=== PATIENT | female | born 1995 | race Caucasian/White ===

== ENCOUNTER 2018-06-10 12:51 | Emergency (ER) | payer OTHER ==
[2018-06-10] MEDS ORDERED: PROCHLORPERAZINE EDISYLATE INJ 10 MG/2 ML VIAL IV ONE (13:14)
[2018-06-10] MEDS ORDERED: NORMAL SALINE 1000 ML 1,000 ML IV ONE (13:14)
[2018-06-10] MEDS ORDERED: DIPHENHYDRAMINE HCL 50 MG/ML VIAL IV ONE (13:14)
[2018-06-10] MEDS ORDERED: KETOROLAC TROMETHAMINE INJ/PF 30 MG/1 ML SDV IV ONE (13:14)
--- NOTE | 2018-06-10 13:16 | ER Document Report ---
HPI - HPI Patient complains to provider of: Headache Time Seen by Provider: 06/10/18 13:09 Onset: This morning Onset/Duration: Gradual Quality of pain: Throbbing Pain Level: 4 Context: Patient presents complaining of left-sided headache pain that started around 830 this morning. Patient states that pain gradually worsened throughout the day. Patient does report light and noise sensitivity. Patient denies any fever or head injury. Patient does complain of some nausea. Patient states she typically gets about 1-2 headaches a week. Patient denies any family history of aneurysm. Associated Symptoms: Headache, Nausea. denies: Productive cough, Fever, Vomiting Exacerbated by: Other - Light and noise Relieved by: Denies Similar symptoms previously: Yes Recently seen / treated by doctor: No - ROS ROS below otherwise negative: Yes Systems Reviewed and Negative: Yes All other systems reviewed and negative - CONSTITUTIONAL Constitutional: DENIES: Fever, Chills - EENT EENT: DENIES: Sore Throat - NEURO Neurology: REPORTS: Headache. DENIES: Weakness, Vision blurred, Dizzinesss / Vertigo - GASTROINTESTINAL Gastrointestinal: REPORTS: Nausea. DENIES: Abdominal Pain, Patient vomiting - MUSCULOSKELETAL Musculoskeletal: DENIES: Back Pain, Neck Pain - DERM Skin Color: Normal Skin Problems: None Past Medical History - General Information source: Patient - Social History Smoking Status: Never Smoker Frequency of alcohol use: Occasional Drug Abuse: None Occupation: Patient access Family History: Reviewed & Not Pertinent - Medical History Medical History: Negative Past Surgical History: Reports: Hx Orthopedic Surgery Vertical Provider Document - CONSTITUTIONAL Agree With Documented VS: Yes Exam Limitations: No Limitations General Appearance: WD/WN, No Apparent Distress - INFECTION CONTROL TRAVEL OUTSIDE OF THE [place] IN LAST 30 DAYS: No - HEENT HEENT: Atraumatic, Normal ENT Exam, Normocephalic - NECK Neck: Normal Inspection, Supple. negative: Lymphadenopathy-Left, Lymphadenopathy-Right Notes: No meningismus - RESPIRATORY Respiratory: Breath Sounds Normal, No Respiratory Distress - CARDIOVASCULAR Cardiovascular: Regular Rate, Regular Rhythm - GI/ABDOMEN Gastrointestinal: Abdomen Soft - BACK Back: Normal Inspection Notes: No spinal tenderness - MUSCULOSKELETAL/EXTREMETIES Musculoskeletal/Extremeties: ULICES BOJORQUEZ - NEURO Level of Consciousness: Awake, Appropriate Motor/Sensory: No Motor Deficit Notes: No focal neurologic deficit - DERM Integumentary: Warm, Dry, No Rash Course - Re-evaluation Re-evalutation: 06/10/18 14:31 Patient reports headache pain is resolved at this time. Patient is feeling much better and ready to be discharged. The patient presents with headache without signs of VINYL CUTTER bleed, stroke, infection, or other serious etiology. The patient is neurologically intact. Given the extremely low risk of these diagnoses further testing and evaluation for these possibilities does not appear to be indicated at this time. The patient has been instructed to return if the symptoms worsen or change in any way. Discharge - Discharge Clinical Impression: Headache Qualifiers: Headache type: unspecified Headache chronicity pattern: unspecified pattern Intractability: not intractable Qualified Code(s): R51 - Headache Condition: Stable Disposition: HOME, SELF-CARE Instructions: Intravenous Compazine for Headaches ([facility]), Headache ([facility]), Toradol Injection ([facility]) Additional Instructions: Return immediately for any new or worsening symptoms Followup with your primary care provider, call tomorrow to make a followup appointment Prescriptions: Butalb/Acetaminophen/Caffeine [Fioricet (50-325-40 mg) Tablet] 1 - 2 tab PO Q4H #20 each Forms: Return to Work Referrals: DAVONTE LUCIANO MD [NO LOCAL MD] - Follow up as needed
[2018-06-10 19:53] VITALS: BP 125/87
== END 2018-06-10 14:40 | disposition home or self-care (01) ==
LOC: ER 12:51
DX: R51 Headache (principal); R11.0 Nausea
CPT/HCPCS: 99283; 96361; 96374; 96375; J1200; J1885; J0780; J7030

== ENCOUNTER 2018-09-02 11:39 | Emergency (ER) | payer OTHER ==
[2018-09-02 11:50] VITALS: BP 120/81
--- NOTE | 2018-09-02 12:03 | ER Document Report ---
HPI - HPI Time Seen by Provider: 09/02/18 11:53 Pain Level: 1 Context: Patient is a 23-year-old female who presents emergency department with a chief complaint of right ear pain and a sore throat. Her symptoms started yesterday. 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 She also has a nickel allergy and uses triamcinolone when she develops a rash. She is out of her triamcinolone cream a nd would like a refill. - EENT EENT: REPORTS: Sore Throat, Ear Pain - NEURO Neurology: DENIES: Headache - CARDIOVASCULAR Cardiovascular: DENIES: Chest pain - RESPIRATORY Respiratory: REPORTS: Coughing. DENIES: Trouble Breathing - REPRODUCTIVE Reproductive: DENIES: : - MUSCULOSKELETAL Musculoskeletal: DENIES: Extremity pain - DERM Skin Color: Normal Skin Problems: None Past Medical History - Social History Smoking Status: Never Smoker Family History: Reviewed & Not Pertinent Patient has suicidal ideation: No Patient has homicidal ideation: No Renal/ Medical History: Denies: Hx Peritoneal Dialysis Past Surgical History: Reports: Hx Orthopedic Surgery - left knee Vertical Provider Document - CONSTITUTIONAL Agree With Documented VS: Yes Exam Limitations: No Limitations - INFECTION CONTROL TRAVEL OUTSIDE OF THE [place] IN LAST 30 DAYS: No - HEENT HEENT: Atraumatic, Normocephalic, PERRLA, Pharyngeal Tenderness, Pharyngeal Eryt ryanne, Tympanic Membrane Red, Tympanic Membrane Bulging - Purulent drainage noted to right tympanic membrane. negative: Pharyngeal Exudate - NECK Neck: Normal Inspection - RESPIRATORY Respiratory: Breath Sounds Normal, No Respiratory Distress - CARDIOVASCULAR Cardiovascular: Regular Rate, Regular Rhythm Pulses: Normal: Radial - GI/ABDOMEN Gastrointestinal: Abdomen Soft - MUSCULOSKELETAL/EXTREMETIES Musculoskeletal/Extremeties: FROM - NEURO Level of Consciousness: Awake, Alert, Appropriate - DERM Integumentary: Warm, Dry Course - Re-evaluation Re-evalutation: 09/02/18 12:04 Patient's physical exam is consistent with acute otitis media. She will be given amoxicillin. She states that she is not allergic to plain amoxicillin, but is allergic to Augmentin, which she is most likely allergic to the clavulanic acid in the Augmentin. I do not suspect Moe's angina, peritonsillar abscess, spontaneous ruptured hepatic membrane, or any life- threatening etiology at this time. Verbal discharge instructions were given to the patient. They verbalized understanding. They are stable for discharge. - Vital Signs Vital signs: Temp Pulse Resp BP Pulse Ox 99.0 F 83 18 120/81 98 09/02/18 11:49 09/02/18 11:49 09/02/18 11:49 09/02/18 11:49 09/02/18 11:49 Discharge - Discharge Clinical Impression: Nickel allergy Acute otitis media Qualifiers: Otitis media type: mucoid Laterality: right Qualified Code(s): H65.111 - Acute and subacute allergic otitis media (mucoid) (sanguinous) (serous), right ear Condition: Stable Additional Instructions: You were seen today in the emergency department for right ear pain. You have an infection in your right ear. You have been given amoxicillin, an antibiotic to help clear the ear infection. Please take the medication as prescribed. Please take all your medication until it is gone. You also received a refill on your triamcinolone cream. Follow up with your primary care in regards to this visit. You can take ibuprofen 600 mg and acetaminophen 1000 mg every 6 hours as needed for a fever. If you develop a fever greater than 100.4 F, have difficulty breathing, shortness of breath, or worsening symptoms, please return to the emergency department. Prescriptions: Amoxicillin Trihydrate [Amoxil 875 mg Tablet] 1 tab PO Q8 #56 tablet Triamcinolone Acetonide [Aristocort 0.5% Cream 15 gm] 1 applic TP PRN PRN #1 tube PRN Reason:
== END 2018-09-02 12:20 | disposition home or self-care (01) ==
LOC: ER 11:39
DX: H65.111 Acute and subacute allergic otitis media (mucoid) (sanguinous) (serous), right ear (principal); L23.0 Allergic contact dermatitis due to metals; H92.01 Otalgia, right ear; J02.9 Acute pharyngitis, unspecified; R21 Rash and other nonspecific skin eruption
CPT/HCPCS: 99282

== ENCOUNTER 2018-09-05 08:12 | Emergency (ER) | payer OTHER ==
[2018-09-05 08:17] VITALS: BP 112/73
--- NOTE | 2018-09-05 09:03 | ER Document Report ---
HPI - HPI Time Seen by Provider: 09/05/18 08:24 Pain Level: 1 Notes: Patient is a 23-year-old female with no significant past medical history who presents to the emergency department complaining of nasal congestion/discharge, s/t, dry nonproductive cough, fever, body ache 2-3 days. Patient states that she is still eating and drinking without difficulties. She is still urinating normally having normal bowel movements. Patient has been using some [id number] meds for symptoms. She was placed on Amoxicillin 3 days ago for rt ear infection. She denies any significant past medical history including cardiopulmonary history and immunocompromised conditions. Patient denies any smoking or IV drug use. Denies any current headache, neck pain, chest pain, palpitations, syncope, shortness of breath, wheeze, dyspnea, abdominal pain, nausea/vomiting/diarrhea, urinary retention, dysuria, hematuria, or rash. - ROS Systems Reviewed and Negative: Yes All other systems reviewed and negative - EENT EENT: REPORTS: Sore Throat - RESPIRATORY Respiratory: REPORTS: Coughing - REPRODUCTIVE Reproductive: DENIES: : Past Medical History - Social History Smoking Status: Never Smoker Chew tobacco use (# tins/day): No Frequency of alcohol use: Occasional Drug Abuse: None Family History: Reviewed & Not Pertinent Patient has suicidal ideation: No Patient has homicidal ideation: No Renal/ Medical History: Denies: Hx Peritoneal Dialysis Past Surgical History: Reports: Hx Orthopedic Surgery - left knee Vertical Provider Document - CONSTITUTIONAL Agree With Documented VS: Yes Notes: PHYSICAL EXAMINATION: GENERAL: Well-appearing, well-nourished and in no acute distress. A&Ox4. Answers questions appropriately. Moves comfortably w/o notable distress HEAD: Atraumatic, normocephalic. EYES: Pupils equal round and reactive to light, extraocular movements intact, sclera anicteric, conjunctiva are normal. ENT: EAC clear b/l. Rt TM has fluid. Lt TM wnl. Nares patent and with clear discharge. oropharynx mild erythema without exudates. No tonsilar hypertrophy with mild erythema no exudate. No palatine shift. Uvula midline. No tongue protrusion. No drooling, hoarseness, or airway compromise. Moist mucous membranes. No sinus tenderness. NECK: Normal range of motion, supple without lymphadenopathy. No rigidity/meningismus. LUNGS: Breath sounds clear to auscultation bilaterally and equal. No wheezes rales or rhonchi. No retractions HEART: Regular rate and rhythm without murmurs, rubs, gallops. NEUROLOGICAL: Normal speech, normal gait. PSYCH: Normal mood, normal affect. SKIN: Warm, Dry, normal turgor, no rashes or lesions noted. - INFECTION CONTROL TRAVEL OUTSIDE OF THE [place] IN LAST 30 DAYS: No Course - Re-evaluation Re-evalutation: 09/05/18 09:01 Patient is an afebrile, well-hydrated, 23-year-old female who presents to the ED with acute URI, suspect influenza. Vitals are acceptable. PE is otherwise unremarkable. No labs or imaging warranted at this time based on H&P. Pt clinically looks like the flu and she is already on Amoxicillin x3 days so no strep to be ordered. Patient has no significant cardiopulmonary or immunocompromised medical conditions. Patient's lungs are clear to auscultation bilaterally without tachycardia, hypoxia, or tachypnea. Patient is tolerating p.o. without any difficulties. Pt beyond treatment window with tamiflu. Low suspicion for any meningitis, sepsis, peritonsillar/pharyngeal abscess, respiratory compromise, severe dehydration, or other emergent systemic condition at this time. Patient is aware this condition can change from initial presentation and she needs to monitor symptoms closely. Conservative measures otherwise for symptoms. Recheck with your PCM in 3-5 days. Return to the ED with any worsening/concerning symptoms otherwise as reviewed in discharge. Patient is in agreement. - Vital Signs Vital signs: Temp Pulse Resp BP Pulse Ox 98.2 F 71 16 112/73 97 09/05/18 08:16 09/05/18 08:16 09/05/18 08:16 09/05/18 08:16 09/05/18 08:16 Discharge - Discharge Clinical Impression: Acute URI Condition: Stable Disposition: HOME, SELF-CARE Additional Instructions: Maintain adequate fluid intake Take meds as directed tylenol/ibuprofen as needed over the counter cold medication as needed for symptoms Humidified air may help Wash your hands regularly Wear a mask when coughing F/u: with your PCM in 3-5 days for a recheck Return to the ED with any fever, worsening pain, chest pain, palpitations, syncope, worsening TATUM, neck pain/stiffness, shortness of breath, wheezing, drooling, trouble swallowing/breathing, abdominal pain, n/v/d, rash, or worsening/concerning symptoms otherwise. Forms: Return to Work Referrals: [facility] [Provider Group] - Follow up as needed
== END 2018-09-05 09:09 | disposition home or self-care (01) ==
LOC: ER 08:12
DX: J06.9 Acute upper respiratory infection, unspecified (principal); M79.10 Myalgia, unspecified site
CPT/HCPCS: 99283

== ENCOUNTER 2018-12-20 19:25 | Emergency (ER) | payer OTHER ==
--- NOTE | 2018-12-20 19:39 | ER Document Report ---
ED Medical Screen (RME) - General Chief Complaint: Abdominal Cramping Stated Complaint: ABDOMINAL PAIN Time Seen by Provider: 12/20/18 19:37 TRAVEL OUTSIDE OF THE [place] IN LAST 30 DAYS: No - HPI Notes: 12/20/18 19:37 Patient is a 23-year-old female no significant past medical history who presents complaining of intermittent lower pelvic cramping that has been ongoing for the past week. Patient states that her cramping became a little more intense today which prompted her to come here for evaluation. She is on ovulation medications and her last mental cycle was about 3 weeks ago. Patient states that she does have associated nausea without vomiting. She is urinating normally and having normal bowel movements. No other vaginal discharge, odor, or bleeding. Patient does not want any medications at this time. Denies TATUM, fever, neck pain, URI, CP, SOB, dysuria, back pain, or rash. I have treated and performed a rapid initial assessment of this patient. A comprehensive ED assessment and evaluation of the patient, analysis of test results and completion of medical decision making process will be conducted by additional ED providers. PHYSICAL EXAMINATION: GENERAL: Well-appearing, well-nourished and in no acute distress. A&Ox4. Answers questions appropriately. LUNGS: Breath sounds clear to auscultation bilaterally and equal. No wheezes rales or rhonchi. HEART: Regular rate and rhythm without murmurs, rubs, gallops. ABDOMEN: Soft, nondistended abdomen. No guarding, no rebound. Normal bowel sounds present. No CVA tenderness bilaterally. Grossly nontender (cannot elicit thorough abd exam w/o bed, however). - Related Data Allergies/Adverse Reactions: amoxicillin [From Augmentin] Allergy (Verified 06/10/18 12:53) clavulanic acid [From Augmentin] Allergy (Verified 06/10/18 12:53) latex Allergy (Verified 06/10/18 12:53) Past Medical History - Social History Chew tobacco use (# tins/day): No Frequency of alcohol use: Occasional Drug Abuse: None Renal/ Medical History: Denies: Hx Peritoneal Dialysis Past Surgical History: Reports: Hx Orthopedic Surgery - left knee Physical Exam - Vital signs Vitals: Temp Pulse Resp BP Pulse Ox 98.0 F 110 H 18 134/82 H 98 12/20/18 19:31 12/20/18 19:31 12/20/18 19:31 12/20/18 19:31 12/20/18 19:31 Course - Vital Signs Vital signs: Temp Pulse Resp BP Pulse Ox 98.0 F 110 H 18 134/82 H 98 12/20/18 19:31 12/20/18 19:31 12/20/18 19:31 12/20/18 19:31 12/20/18 19:31
[2018-12-20 20:08] LABS: ABSOLUTE BASOPHILS # (AUTO) 0.1 10^3/uL (0.0-0.2); ABSOLUTE EOSINOPHILS # (AUTO) 0.2 10^3/uL (0.0-0.6); ABSOLUTE LYMPHOCYTES (AUTO) 2.6 10^3/uL (0.5-4.7); ABSOLUTE MONOCYTES (AUTO) 0.6 10^3/uL (0.1-1.4); ABSOLUTE NEUT (AUTO) 8.2 10^3/uL (1.7-8.2); BASOPHILS % (AUTO) 0.4 % (0-2); EOSINOPHILS % (AUTO) 1.5 % (0-6); HEMATOCRIT 40.8 % (36.0-47.0); HEMOGLOBIN 14.1 g/dL (12.0-15.5); LYMPHOCYTES % (AUTO) 22.2 % (13-45); MEAN CORPUSCULAR HEMOGLOBIN 27.8 pg (27.0-33.4); MEAN CORPUSCULAR HGB CONC 34.6 g/dL (32.0-36.0); MEAN CORPUSCULAR VOLUME 80 fl (80-97); MONOCYTES % (AUTO) 5.2 % (3-13); PLATELET COUNT 172 10^3/uL (150-450); RED BLOOD COUNT 5.08 10^6/uL (3.72-5.28); RED CELL DISTRIBUTION WIDTH 12.6 % (11.5-14.0); SEGMENTED NEUTROPHILS % (AUTO) 70.7 % (42-78); TOTAL CELLS COUNTED % (AUTO) 100 %; WHITE BLOOD COUNT 11.6 10^3/uL (4.0-10.5)
[2018-12-20 20:20] LABS: ALANINE AMINOTRANSFERASE 23 U/L (9-52); ALBUMIN 4.4 g/dL (3.5-5.0); ALKALINE PHOSPHATASE 48 U/L (38-126); ANION GAP 8 (5-19); ASPARTATE AMINO TRANSFERASE 20 U/L (14-36); BILIRUBIN,DIRECT 0.2 mg/dL (0.0-0.4); BILIRUBIN,TOTAL 0.4 mg/dL (0.2-1.3); BLOOD UREA NITROGEN 12 mg/dL (7-20); CALCIUM 9.5 mg/dL (8.4-10.2); CARBON DIOXIDE 30 mmol/L (22-30); CHLORIDE 102 mmol/L (98-107); GLUCOSE 115 mg/dL (75-110); POTASSIUM 3.9 mmol/L (3.6-5.0); SODIUM 139.5 mmol/L (137-145); TOTAL PROTEIN 7.2 g/dL (6.3-8.2)
[2018-12-20 21:03] LABS: APPEARANCE,URINE CLEAR; BILIRUBIN,URINE NEGATIVE (NEGATIVE); COLOR,URINE STRAW; GLUCOSE, URINE NEGATIVE (NEGATIVE); KETONES,URINE NEGATIVE (NEGATIVE); LEUKOCYTE ESTERASE,URINE NEGATIVE (NEGATIVE); NITRITE,URINE NEGATIVE (NEGATIVE); PROTEIN,URINE NEGATIVE (NEGATIVE); URINE SPECIFIC GRAVITY 1.008; UROBILINOGEN,URINE NEGATIVE mg/dL (<2.0)
--- NOTE | 2018-12-20 21:03 | RADIOLOGY REPORT (SQ) ---
US PELVIS HISTORY: Pelvic pain. COMPARISON: None. TECHNIQUE: Grayscale, color Doppler, and spectral Doppler ultrasound images of the pelvis were obtained. FINDINGS: The uterus is retroverted and measures 7.4 x 5.0 x 4.2 cm. The endometrium is 1.1 cm in thickness. The cervix is 1.8 cm in length. Both ovaries are normal in size and contain normal follicles, with the right ovary measuring 3.1 x 2.6 x 2.5 cm, and the left ovary measuring 3.1 x 2.1 x 1.5 cm. Normal color Doppler blood flow is seen in both ovaries. Trace pelvic free fluid. IMPRESSION: No acute pelvic findings.
--- NOTE | 2018-12-20 23:24 | ER Document Report ---
ED GI/ - General Chief Complaint: Abdominal Cramping Stated Complaint: ABDOMINAL PAIN Time Seen by Provider: 12/20/18 19:37 Notes: 23-year-old female patient emergency department chief complaint of some lower pelvic discomfort. Patient was concerned because on Clomid. Never felt this pain before. Denies any fever, chills, sweats. No vomiting. No vaginal discharge. Does not think that she is but definitely has some concerns. Pain is getting better not worse. TRAVEL OUTSIDE OF THE [place] IN LAST 30 DAYS: No - Related Data Allergies/Adverse Reactions: amoxicillin [From Augmentin] Allergy (Verified 06/10/18 12:53) clavulanic acid [From Augmentin] Allergy (Verified 06/10/18 12:53) latex Allergy (Verified 06/10/18 12:53) Past Medical History - Social History Smoking Status: Never Smoker Chew tobacco use (# tins/day): No Frequency of alcohol use: Occasional Drug Abuse: None Family History: Reviewed & Not Pertinent Patient has suicidal ideation: No Patient has homicidal ideation: No Renal/ Medical History: Denies: Hx Peritoneal Dialysis Past Surgical History: Reports: Hx Orthopedic Surgery - left knee Review of Systems - Review of Systems Notes: Constitutional: denies: Chills, Diaphoresis, Fever, Malaise, Weakness EENT: denies: Eye discharge, Blurred vision, Tearing, Double vision, Nose congestion, Nose discharge, Throat swelling, Mouth pain Cardiovascular: denies: Palpitations, Heart racing, Orthopnea, Dyspnea, Chest pain Respiratory: denies: Cough, Hurts to breathe, Wheezing, Shortness of breath Gastrointestinal: + Abdominal pain, -Diarrhea,+Nausea,- Vomiting, -Black stools, -bright red blood in stool Genitourinary: denies: -Burning, -Dysuria, -Discharge,- Frequency,- Flank pain, -Hematuria Musculoskeletal: denies: Joint pain, Joint swelling, Muscle pain, Muscle stiffness, back pain Hematologic/Lymphatic: denies: Anemia, Easy bleeding, Easy bruising, Blood clots Neurological/Psychological: denies: Confusion, Dementia, Depression, Loss of consciousness Skin: No lesions, no masses, no skin breakdown, no abscesses Physical Exam - Vital signs Vitals: Temp Pulse Resp BP Pulse Ox 98.0 F 110 H 18 134/82 H 98 12/20/18 19:31 12/20/18 19:31 12/20/18 19:31 12/20/18 19:31 12/20/18 19:31 Interpretation: Normal - General General appearance: Appears well, Alert - HEENT Head: Normocephalic, Atraumatic Eyes: Normal Pupils: PERRL - Respiratory Respiratory status: No respiratory distress Chest status: Nontender Breath sounds: Normal Chest palpation: Normal - Cardiovascular Rhythm: Regular Heart sounds: Normal auscultation Murmur: No - Abdominal Inspection: Normal Distension: No distension Bowel sounds: Normal Tenderness: Tender - Mild tenderness to palpation in the lower suprapubic area.. No: Guarding, Rebound Organomegaly: No organomegaly - Back Back: Normal, Nontender - Extremities General upper extremity: Normal inspection, Nontender, Normal color, Normal ROM, Normal temperature General lower extremity: Normal inspection, Nontender, Normal color, Normal ROM, Normal temperature, Normal weight bearing. No: Nelli's sign - Neurological Neuro grossly intact: Yes Cognition: Normal Orientation: AAOx4 Carlos Coma Scale Eye Opening: Spontaneous Carlos Coma Scale Verbal: Oriented Carlos Coma Scale Motor: Obeys Commands Carlos Coma Scale Total: 15 Speech: Normal Motor strength normal: LUE, RUE, LLE, RLE Sensory: Normal - Psychological Associated symptoms: Normal affect, Normal mood - Skin Skin Temperature: Warm Skin Moisture: Dry Skin Color: Normal Course - Re-evaluation Re-evalutation: 12/20/18 23:21 Laboratory 12/20/18 12/20/18 12/20/18 19:37 19:47 19:47 WBC 11.6 H RBC 5.08 Hgb 14.1 Hct 40.8 MCV 80 MCH 27.8 MCHC 34.6 RDW 12.6 Plt Count 172 Seg Neutrophils % 70.7 Lymphocytes % 22.2 Monocytes % 5.2 Eosinophils % 1.5 Basophils % 0.4 Absolute Neutrophils 8.2 Absolute Lymphocytes 2.6 Absolute Monocytes 0.6 Absolute Eosinophils 0.2 Absolute Basophils 0.1 Sodium 139.5 Potassium 3.9 Chloride 102 Carbon Dioxide 30 Anion Gap 8 BUN 12 Creatinine 0.85 Est GFR ( Amer) > 60 Est GFR (Non-Af Amer) > 60 Glucose 115 H Calcium 9.5 Total Bilirubin 0.4 Direct Bilirubin 0.2 Neonat Total Bilirubin Not Reportable Neonat Direct Bilirubin Not Reportable Neonat Indirect Bili Not Reportable AST 20 ALT 23 Alkaline Phosphatase 48 Total Protein 7.2 Albumin 4.4 Beta HCG, Quant < 2.39 Total Beta HCG NEGATIVE Urine Color STRAW Urine Appearance CLEAR Urine pH 7.0 Ur Specific [place] 1.008 Urine Protein NEGATIVE Urine Glucose (UA) NEGATIVE Urine Ketones NEGATIVE Urine Blood NEGATIVE Urine Nitrite NEGATIVE Urine Bilirubin NEGATIVE Urine Urobilinogen NEGATIVE Ur Leukocyte Esterase NEGATIVE Urine WBC (Auto) 0 Urine RBC (Auto) 0 Squamous Epi Cells Auto 4 Urine Mucus (Auto) RARE Urine Ascorbic Acid NEGATIVE Transvaginal US 12/20/18 19:37 IMPRESSION: No acute pelvic findings. There is no evidence of any ectopic . hCG negative. Urinalysis unrema rkable. Labs unremarkable with exception of a slight elevated WBC count. Ultrasound did not reveal anything significant. At this time I am given her instructions to return if symptoms are getting worse. As always this could be an early appendicitis. I have given her instructions with regards to right lower quadrant pain. Patient is an intelligent individual and I believe she can easily be discharged at this time with close outpatient follow-up. Return in 24 hours if symptoms are getting worse or no better. - Vital Signs Vital signs: Temp Pulse Resp BP Pulse Ox 98.0 F 110 H 18 134/82 H 98 12/20/18 19:31 12/20/18 19:31 12/20/18 19:31 12/20/18 19:31 12/20/18 19:31 - Laboratory Result Diagrams: 12/20/18 19:47 12/20/18 19:47 Laboratory results interpreted by me: 12/20/18 12/20/18 19:47 19:47 WBC 11.6 H Glucose 115 H Discharge - Discharge Clinical Impression: Abdominal pain Qualifiers: Abdominal location: generalized Qualified Code(s): R10.84 - Generalized abdominal pain Condition: Good Disposition: HOME, SELF-CARE Instructions: Abdominal Pain ([facility]), Observation for Appendicitis ([facility]) Additional Instructions: It is very important that if your symptoms are getting worse especially if you begin to develop fever, do not feel like eating and the pain in your abdomen begins to get worse in the right lower quadrant then you should return in 24 hours or sooner for repeat evaluation. This could always be an early appendicitis. Good outpatient follow-up or repeat evaluation in the ER is necessary if symptoms are not getting better or if getting worse. Forms: Return to Work
[2018-12-21] VITALS: BP 119/79
== END 2018-12-20 23:57 | disposition home or self-care (01) ==
LOC: ER 19:25
DX: R10.84 Generalized abdominal pain (principal); Z88.0 Allergy status to penicillin; Z91.040 Latex allergy status
CPT/HCPCS: 36415; 76830; 80053; 81001; 84702; 85025; 93976; 99284

== ENCOUNTER 2018-12-21 14:11 | Emergency (ER) | payer OTHER ==
[2018-12-21] MEDS ORDERED: NORMAL SALINE 1000 ML 1,000 ML IV ONE (16:21)
--- NOTE | 2018-12-21 16:23 | ER Document Report ---
ED Medical Screen (RME) - General Chief Complaint: Abdominal Pain Stated Complaint: ABDOMINAL PAIN Time Seen by Provider: 12/21/18 16:18 Mode of Arrival: Ambulatory Information source: Patient Notes: Patient presents with lower pelvic pain for the past week that has radiated to the right lower side of the abdomen to the right lateral side. Patient states pain worsened yesterday. Patient was seen here yesterday and was discharged with instructions to return for any worsening or persistent problems. Patient states they were concerned about appendicitis due to her elevated white blood ce ll count yesterday. I have greeted and performed a rapid initial assessment of this patient. A comprehensive ED assessment and evaluation of the patient, analysis of test results and completion of the medical decision making process will be conducted by additional ED providers. TRAVEL OUTSIDE OF THE [place] IN LAST 30 DAYS: No - Related Data Allergies/Adverse Reactions: amoxicillin [From Augmentin] Allergy (Verified 12/21/18 14:15) clavulanic acid [From Augmentin] Allergy (Verified 12/21/18 14:15) latex Allergy (Verified 12/21/18 14:15) Past Medical History - Social History Frequency of alcohol use: Occasional Drug Abuse: None Renal/ Medical History: Denies: Hx Peritoneal Dialysis Past Surgical History: Reports: Hx Orthopedic Surgery - left knee Physical Exam - Vital signs Vitals: Pulse Resp BP 105 H 16 125/77 12/21/18 14:20 12/21/18 14:20 12/21/18 14:20 - Abdominal Tenderness: Tender - Right lower quadrant, right lateral side Course - Vital Signs Vital signs: Temp Pulse Resp BP Pulse Ox 105 H 16 125/77 12/21/18 14:20 12/21/18 14:20 12/21/18 14:20
[2018-12-21 17:14] LABS: ABSOLUTE EOSINOPHILS # (AUTO) 0.1 10^3/uL (0.0-0.6); ABSOLUTE LYMPHOCYTES (AUTO) 1.9 10^3/uL (0.5-4.7); ABSOLUTE MONOCYTES (AUTO) 0.4 10^3/uL (0.1-1.4); ABSOLUTE NEUT (AUTO) 7.1 10^3/uL (1.7-8.2); BASOPHILS % (AUTO) 0.5 % (0-2); EOSINOPHILS % (AUTO) 0.8 % (0-6); HEMATOCRIT 44.5 % (36.0-47.0); HEMOGLOBIN 15.5 g/dL (12.0-15.5); LYMPHOCYTES % (AUTO) 19.9 % (13-45); MEAN CORPUSCULAR HEMOGLOBIN 28.1 pg (27.0-33.4); MEAN CORPUSCULAR HGB CONC 34.7 g/dL (32.0-36.0); MEAN CORPUSCULAR VOLUME 81 fl (80-97); MONOCYTES % (AUTO) 3.8 % (3-13); PLATELET COUNT 175 10^3/uL (150-450); RED BLOOD COUNT 5.49 10^6/uL (3.72-5.28); RED CELL DISTRIBUTION WIDTH 12.7 % (11.5-14.0); TOTAL CELLS COUNTED % (AUTO) 100 %; WHITE BLOOD COUNT 9.5 10^3/uL (4.0-10.5)
[2018-12-21 17:29] LABS: ALANINE AMINOTRANSFERASE 28 U/L (9-52); ALBUMIN 4.9 g/dL (3.5-5.0); ALKALINE PHOSPHATASE 54 U/L (38-126); ANION GAP 9 (5-19); ASPARTATE AMINO TRANSFERASE 24 U/L (14-36); BILIRUBIN,DIRECT 0.2 mg/dL (0.0-0.4); BILIRUBIN,TOTAL 0.8 mg/dL (0.2-1.3); BLOOD UREA NITROGEN 11 mg/dL (7-20); CALCIUM 10.1 mg/dL (8.4-10.2); CARBON DIOXIDE 30 mmol/L (22-30); CHLORIDE 101 mmol/L (98-107); GLUCOSE 88 mg/dL (75-110); POTASSIUM 3.9 mmol/L (3.6-5.0); SODIUM 140.1 mmol/L (137-145); TOTAL PROTEIN 8.2 g/dL (6.3-8.2)
[2018-12-21 17:32] LABS: APPEARANCE,URINE SLIGHTLY-CLOUDY; BILIRUBIN,URINE NEGATIVE (NEGATIVE); COLOR,URINE YELLOW; GLUCOSE, URINE NEGATIVE (NEGATIVE); KETONES,URINE TRACE mg/dL (NEGATIVE); LEUKOCYTE ESTERASE,URINE NEGATIVE (NEGATIVE); NITRITE,URINE NEGATIVE (NEGATIVE); PROTEIN,URINE NEGATIVE (NEGATIVE); URINE SPECIFIC GRAVITY 1.012; UROBILINOGEN,URINE NEGATIVE mg/dL (<2.0)
--- NOTE | 2018-12-21 19:35 | RADIOLOGY REPORT (SQ) ---
EXAM DESCRIPTION: CT ABD/PELVIS WITH IV ORAL COMPLETED DATE/TIME: 12/21/2018 7:01 pm REASON FOR STUDY: RLQ pain COMPARISON: None. TECHNIQUE: CT scan of the abdomen and pelvis performed using helical scanning technique with dynamic intravenous contrast injection. With oral contrast. Images reviewed with lung, soft tissue, and bon e windows. Reconstructed coronal and sagittal MPR images reviewed. Delayed images were not acquired. All images stored on PACS. All CT scanners at this facility use dose modulation, iterative reconstruction, and/or weight based d osing when appropriate to reduce radiation dose to as low as reasonably achievable (ALARA). [facility]: Dose Right [facility]: CareDose [facility]: Dose Right [facility]: Teradose 4D [facility]: viVood CONTRAST TYPE AND DOSE: contrast/concentration: Isovue 350.00 mg/ml; Total Contrast Delivered: 66.0 ml; Total Saline Delivered: 65.0 ml RENAL FUNCTION: None required. The patient is less than 50 years old. RADIATION DOSE: CT Rad equipment meets quality standard of care and radiation dose reduction techniq ues were employed. CTDIvol: 5.0 mGy. DLP: 239 mGy-cm.. LIMITATIONS: None. FINDINGS: LOWER CHEST: No significant findings. No nodules or infiltrates. LIVER: Normal size. No masses. No dilated ducts. SPLEEN: Normal size. No focal lesions. PANCREAS: No masses. No significant calcifications. No adjacent inflammation or peripancreatic fluid collections. Pancreatic duct not dilated. GALLBLADDER: No identified stones by CT criteria. No inflammatory changes to suggest cholecystitis. ADRENAL GLANDS: No significant masses or asymmetry. RIGHT KIDNEY AND URETER: No solid masses. No significant calcifications. No hydronephrosis or hyd roureter. LEFT KIDNEY AND URETER: No solid masses. No significant calcifications. No hydronephrosis or hydr oureter. AORTA AND VESSELS: No aneurysm. No dissection. Renal arteries, SMA, celiac without stenosis. RETROPERITONEUM: No retroperitoneal adenopathy, hemorrhage or masses. BOWEL AND PERITONEAL CAVITY: No masses or inflammatory changes. No free fluid or peritoneal masses. APPENDIX: Not visualized. No inflammatory changes. PELVIS: No mass. No free fluid. Normal bladder. ABDOMINAL WALL: No masses. No hernias. BONES: No significant or acute findings. OTHER: No other significant finding. IMPRESSION: NO SIGNIFICANT OR ACUTE FINDING IN THE ABDOMEN OR PELVIS ON CT SCAN WITH IV CONTRAST. TECHNICAL DOCUMENTATION: JOB ID: [id number] Quality ID # [id number]: Final reports with documentation of one or more dose reduction techniques (e.g., Au tomated exposure control, adjustment of the mA and/or kV according to patient size, use of iterative reconstruction technique) 2010 [employer]- All Rights Reserved Reading location - IP/workstation name: [email or web address]
--- NOTE | 2018-12-21 22:46 | ER Document Report ---
ED GI/ - General Chief Complaint: Abdominal Pain Stated Complaint: ABDOMINAL PAIN Time Seen by Provider: 12/21/18 16:18 Mode of Arrival: Ambulatory Notes: This is a very pleasant 23-year-old female patient emergency department for evaluation of persistent abdominal pain. Patient was seen by myself last night. States that the pain was still there this morning. Decided to come back for repeat evaluation. Was seen earlier this afternoon. Had a CT scan with IV and oral contrast and labs were obtained. States that her pain is still there but not getting worse. Denies any vaginal discharge. No vomiting. No other major symptoms. Of note, patient is on Clomid and followed by [facility]. Has an appointment in a few days with Dr. Guidry with [facility] TRAVEL OUTSIDE OF THE [place] IN LAST 30 DAYS: No - HPI Patient complains to provider of: Abdominal pain Timing/Duration: Gradual, Constant Quality of pain: Achy Severity at maximum: Mild Severity in ED: Mild Pain Level: 1 Location: RLQ Vaginal bleeding (Compared to normal period): None - Related Data Allergies/Adverse Reactions: amoxicillin [From Augmentin] Allergy (Verified 12/21/18 14:15) clavulanic acid [From Augmentin] Allergy (Verified 12/21/18 14:15) latex Allergy (Verified 12/21/18 14:15) Past Medical History - General Information source: Patient - Social History Smoking Status: Never Smoker Frequency of alcohol use: Occasional Drug Abuse: None Family History: Reviewed & Not Pertinent Patient has suicidal ideation: No Patient has homicidal ideation: No - Medical History Medical History: Negative Renal/ Medical History: Denies: Hx Peritoneal Dialysis Past Surgical History: Reports: Hx Orthopedic Surgery - left knee Review of Systems - Review of Systems Notes: Constitutional: denies: Chills, Diaphoresis, Fever, Malaise, Weakness EENT: denies: Eye discharge, Blurred vision, Tearing, Double vision, Nose congestion, Nose discharge, Throat swelling, Mouth pain Cardiovascular: denies: Palpitations, Heart racing, Orthopnea, Dyspnea, Chest pain Respiratory: denies: Cough, Hurts to breathe, Wheezing, Shortness of breath Gastrointestinal: + RLQAbdominal pain, -Diarrhea, -Nausea, -Vomiting, Black stools, bright red blood in stool Genitourinary: denies: Burning, Dysuria, Discharge, Frequency, Flank pain, Hematuria Musculoskeletal: denies: Joint pain, Joint swelling, Muscle pain, Muscle stiffness, back pain Hematologic/Lymphatic: denies: Anemia, Easy bleeding, Easy bruising, Blood clots Neurological/Psychological: denies: Confusion, Dementia, Depression, Loss of consciousness Skin: No lesions, no masses, no skin breakdown, no abscesses Physical Exam - Vital signs Vitals: Pulse Resp BP 105 H 16 125/77 12/21/18 14:20 12/21/18 14:20 12/21/18 14:20 Interpretation: Normal - General General appearance: Appears well, Alert - HEENT Head: Normocephalic, Atraumatic Eyes: Normal Pupils: PERRL - Respiratory Respiratory status: No respiratory distress Chest status: Nontender Breath sounds: Normal Chest palpation: Normal - Cardiovascular Rhythm: Regular Heart sounds: Normal auscultation Murmur: No - Abdominal Inspection: Normal Distension: No distension Bowel sounds: Normal Tenderness: Tender - Mild right lower quadrant tenderness but no guarding or rebound. Organomegaly: No organomegaly - Back Back: Normal, Nontender - Extremities General upper extremity: Normal inspection, Nontender, Normal color, Normal ROM, Normal temperature General lower extremity: Normal inspection, Nontender, Normal color, Normal ROM, Normal temperature, Normal weight bearing. No: Nelli's sign - Neurological Neuro grossly intact: Yes Cognition: Normal Orientation: AAOx4 Carlos Coma Scale Eye Opening: Spontaneous Carlos Coma Scale Verbal: Oriented Carlos Coma Scale Motor: Obeys Commands Carlos Coma Scale Total: 15 Speech: Normal Motor strength normal: LUE, RUE, LLE, RLE Sensory: Normal - Psychological Associated symptoms: Normal affect, Normal mood - Skin Skin Temperature: Warm Skin Moisture: Dry Skin Color: Normal Course - Re-evaluation Re-evalutation: 12/21/18 22:46 Laboratory 12/21/18 12/21/18 12/21/18 16:45 16:57 16:57 WBC 9.5 RBC 5.49 H Hgb 15.5 Hct 44.5 MCV 81 MCH 28.1 MCHC 34.7 RDW 12.7 Plt Count 175 Seg Neutrophils % 75.0 Lymphocytes % 19.9 Monocytes % 3.8 Eosinophils % 0.8 Basophils % 0.5 Absolute Neutrophils 7.1 Absolute Lymphocytes 1.9 Absolute Monocytes 0.4 Absolute Eosinophils 0.1 Absolute Basophils 0.0 Sodium 140.1 Potassium 3.9 Chloride 101 Carbon Dioxide 30 Anion Gap 9 BUN 11 Creatinine 0.70 Est GFR ( Amer) > 60 Est GFR (Non-Af Amer) > 60 Glucose 88 Calcium 10.1 Total Bilirubin 0.8 Direct Bilirubin 0.2 Neonat Total Bilirubin Not Reportable Neonat Direct Bilirubin Not Reportable Neonat Indirect Bili Not Reportable AST 24 ALT 28 Alkaline Phosphatase 54 Total Protein 8.2 Albumin 4.9 Serum HCG, Qual Urine Color YELLOW Urine Appearance SLIGHTLY-CLOUDY Urine pH 7.0 Ur Specific Ashby 1.012 Urine Protein NEGATIVE Urine Glucose (UA) NEGATIVE Urine Ketones TRACE H Urine Blood NEGATIVE Urine Nitrite NEGATIVE Urine Bilirubin NEGATIVE Urine Urobilinogen NEGATIVE Ur Leukocyte Esterase NEGATIVE Urine WBC (Auto) 1 Urine RBC (Auto) 0 Urine Bacteria (Auto) TRACE Squamous Epi Cells Auto 5 Urine Mucus (Auto) RARE Urine Ascorbic Acid NEGATIVE 12/21/18 16:57 WBC RBC Hgb Hct MCV MCH MCHC RDW Plt Count Seg Neutrophils % Lymphocytes % Monocytes % Eosinophils % Basophils % Absolute Neutrophils Absolute Lymphocytes Absolute Monocytes Absolute Eosinophils Absolute Basophils Sodium Potassium Chloride Carbon Dioxide Anion Gap BUN Creatinine Est GFR ( Amer) Est GFR (Non-Af Amer) Glucose Calcium Total Bilirubin Direct Bilirubin Neonat Total Bilirubin Neonat Direct Bilirubin Neonat Indirect Bili AST ALT Alkaline Phosphatase Total Protein Albumin Serum HCG, Qual NEGATIVE Urine Color Urine Appearance Urine pH Ur Specific Ashby Urine Protein Urine Glucose (UA) Urine Ketones Urine Blood Urine Nitrite Urine Bilirubin Urine Urobilinogen Ur Leukocyte Esterase Urine WBC (Auto) Urine RBC (Auto) Urine Bacteria (Auto) Squamous Epi Cells Auto Urine Mucus (Auto) Urine Ascorbic Acid Abdomen/Pelvis CT 12/21/18 00:00 IMPRESSION: NO SIGNIFICANT OR ACUTE FINDING IN THE ABDOMEN OR PELVIS ON CT SCAN WITH IV CONTRAST. Patient has a normal CT scan today. Improving labs. Improving exam. Does not appear to be toxic in any way.. At this time I do not know why she is hurting but unlikely in emergency at this point. Patient feels comfortable with this plan and has outpatient follow-up with her [facility] in a few days. Will discharge in stable condition at this time. - Vital Signs Vital signs: Temp Pulse Resp BP Pulse Ox 105 H 16 125/77 12/21/18 14:20 12/21/18 14:20 12/21/18 14:20 - Laboratory Result Diagrams: 12/21/18 16:57 12/21/18 16:57 Laboratory results interpreted by me: 12/21/18 12/21/18 16:45 16:57 RBC 5.49 H Urine Ketones TRACE H Discharge - Discharge Clinical Impression: Right lower quadrant abdominal pain Condition: Good Disposition: HOME, SELF-CARE Instructions: Observation for Appendicitis ([facility]), Abdominal Pain ([facility]) Additional Instructions: Please return if symptoms are getting worse. Follow-up with your doctors. Return for any worsening symptoms or concerns.
[2018-12-21 23:00] VITALS: BP 111/73
== END 2018-12-21 23:02 | disposition home or self-care (01) ==
LOC: ER 14:11
DX: R10.31 Right lower quadrant pain (principal); R10.9 Unspecified abdominal pain; Z79.899 Other long term (current) drug therapy
CPT/HCPCS: 99284; 96360; 36415; 84703; 85025; 80053; 81001; 74177; J7030

== ENCOUNTER → 2019-02-09 | Outpatient (CLI) | payer OTHER ==
--- NOTE | 2019-02-09 15:49 | RADIOLOGY REPORT (SQ) ---
EXAM DESCRIPTION: HYSTEROSALPINGOGRAM; HYSTERO CATH/INJECTION COMPLETED DATE/TIME: 02/09/2019 3:12 pm REASON FOR STUDY: N97.9 FEMALE INFERTILITY, UNSPECIFIED COMPARISON: None. PROCEDURE: PRE-PROCEDURE: Procedure was explained to the patient. She was told to expect cramping du ring the procedure, and possible spotting post procedure. PROCEDURE: The cervix was prepped in sterile fashion. Under direct visual inspection, the cervix was cannulated with the hysterosalpingogram catheter and contrast injected. TECHNIQUE: Temporal fluoroscopic images acquired during the procedure stored to PACS. FLUOROSCOPY TIME: Less than 5 seconds 8 images saved to PACS. LIMITATIONS: None. FINDINGS: UTERUS: No identified anomalies. No synechia. RIGHT ADNEXA: Normal size fallopian tube. Free spill of contrast into the peritoneal cavity. LEFT ADNEXA: Normal size fallopian tube. Free spill of contrast into the peritoneal cavity. POST PROCEDURE: The patient tolerated the procedure with no adverse effects. IMPRESSION: NORMAL HYSTEROSALPINGOGRAM. COMMENT: Study performed by and interpreted by the radiologist. Study performed by STRE[facility] SWEEPER physician. Supervision and interpretation by the radiologist. Quality ID 145: Final reports for procedures using fluoroscopy that document radiation exposure laz mellissa, or exposure time and number of fluorographic images (if radiation exposure indices are not avail able) TECHNICAL DOCUMENTATION: JOB ID: [id number] [employer]- All Rights Reserved Reading location - IP/workstation name: [email or web address]
--- NOTE | 2019-02-09 15:49 | RADIOLOGY REPORT (SQ) ---
EXAM DESCRIPTION: HYSTEROSALPINGOGRAM; HYSTERO CATH/INJECTION COMPLETED DATE/TIME: 02/09/2019 3:12 pm REASON FOR STUDY: N97.9 FEMALE INFERTILITY, UNSPECIFIED COMPARISON: None. PROCEDURE: PRE-PROCEDURE: Procedure was explained to the patient. She was told to expect cramping du ring the procedure, and possible spotting post procedure. PROCEDURE: The cervix was prepped in sterile fashion. Under direct visual inspection, the cervix was cannulated with the hysterosalpingogram catheter and contrast injected. TECHNIQUE: Temporal fluoroscopic images acquired during the procedure stored to PACS. FLUOROSCOPY TIME: Less than 5 seconds 8 images saved to PACS. LIMITATIONS: None. FINDINGS: UTERUS: No identified anomalies. No synechia. RIGHT ADNEXA: Normal size fallopian tube. Free spill of contrast into the peritoneal cavity. LEFT ADNEXA: Normal size fallopian tube. Free spill of contrast into the peritoneal cavity. POST PROCEDURE: The patient tolerated the procedure with no adverse effects. IMPRESSION: NORMAL HYSTEROSALPINGOGRAM. COMMENT: Study performed by and interpreted by the radiologist. Study performed by [facility] RE[facility]ENT[facility] physician. Supervision and interpretation by the radiologist. Quality ID 145: Final reports for procedures using fluoroscopy that document radiation exposure laz mellissa, or exposure time and number of fluorographic images (if radiation exposure indices are not avail able) TECHNICAL DOCUMENTATION: JOB ID: [id number] [employer] All Rights Reserved Reading location - IP/workstation name: [email or web address]
== END ==
LOC: RAD 14:07
PROVIDERS: ATTEND Obstetrics & Gynecology Gynecology
DX: N97.9 Female infertility, unspecified (principal)
CPT/HCPCS: 58340; 74740

== ENCOUNTER 2019-11-04 19:38 | Emergency (ER) | payer OTHER ==
--- NOTE | 2019-11-04 20:05 | ER Document Report ---
ED Extremity Problem, Lower - General Chief Complaint: Knee Injury Stated Complaint: LEFT KNEE INJURY Time Seen by Provider: 11/04/19 19:47 Primary Care Provider: [facility] [Provider Group] - Follow up as needed AMAURY CAOTES MD [EMERITUS] - Follow up as needed Mode of Arrival: Wheelchair Information source: Patient Notes: 24-year-old female presented to ED for complaint of pain to her left knee. She states her 80 pound dog ran into her knee bending her knee backwards about 330 today. She states she iced and elevated the knee and then took a hot shower. She states she then elevated her knee again and iced it and ate dinner. She states that she had knee surgery in 2011 where they shaved some bone spurs and she has had pain in her knee since that time. She states this injury now has made it feel like before she even had the knee surgery. TRAVEL OUTSIDE OF THE [place] IN LAST 30 DAYS: No - HPI Patient complains to provider of: Pain, Swelling Location: Knee Occurred: This afternoon Where: Home, Indoors Onset/Duration: Gradual, Persistent Quality of pain: Sharp, Stabbing Severity: Moderate Pain Level: 4 Context: Other - States her dog ran into her knee Recent injury: Possibly Associated symptoms: Painful ambulation Exacerbated by: Hanging down, Movement, Walking Relieved by: Elevation, Ice, Rest - Related Data Allergies/Adverse Reactions: amoxicillin [From Augmentin] Allergy (Verified 12/21/18 14:15) clavulanic acid [From Augmentin] Allergy (Verified 12/21/18 14:15) latex Allergy (Verified 12/21/18 14:15) Past Medical History - General Information source: Patient - Social History Smoking Status: Never Smoker Frequency of alcohol use: Social Drug Abuse: None Lives with: Family Family History: Reviewed & Not Pertinent Patient has homicidal ideation: No - Past Medical History Cardiac Medical History: Reports: None Pulmonary Medical History: Reports: None EENT Medical History: Reports: None Neurological Medical History: Reports: None Endocrine Medical History: Reports: None Renal/ Medical History: Reports: None Malignancy Medical History: Reports: None GI Medical History: Reports: None Musculoskeletal Medical History: Reports Hx Musculoskeletal Trauma Skin Medical History: Reports None Psychiatric Medical History: Reports: None Traumatic Medical History: Reports: None Infectious Medical History: Reports: None Past Surgical History: Reports: Hx Orthopedic Surgery - left knee - Immunizations Immunizations up to date: Yes Review of Systems - Review of Systems Constitutional: No symptoms reported EENT: No symptoms reported Cardiovascular: No symptoms reported Respiratory: No symptoms reported Gastrointestinal: No symptoms reported Genitourinary: No symptoms reported Female Genitourinary: No symptoms reported Musculoskeletal: Joint pain, Joint swelling Skin: No symptoms reported Hematologic/Lymphatic: No symptoms reported Neurological/Psychological: No symptoms reported -: Yes All other systems reviewed and negative Physical Exam - Vital signs Vitals: Temp 98.5 F 11/04/19 19:48 Interpretation: Normal - General General appearance: Appears well, Alert - HEENT Head: Normocephalic, Atraumatic Eyes: Normal Pupils: PERRL - Respiratory Respiratory status: No respiratory distress Chest status: Nontender Breath sounds: Normal Chest palpation: Normal - Cardiovascular Rhythm: Regular Heart sounds: Normal auscultation Murmur: No - Abdominal Inspection: Normal Distension: No distension Bowel sounds: Normal Tenderness: Nontender Organomegaly: No organomegaly - Back Back: Normal, Nontender - Extremities General upper extremity: Normal inspection, Nontender, Normal color, Normal ROM, Normal temperature General lower extremity: Normal color, Normal temperature. No: Nelli's sign Knee: Tender, Joint effusion, Pain with ROM, Patellar tendon intact, Tender joint line. No: Abrasion, Deformity, Dislocation, Drawer's test instability, Ecchymosis, Instability, Laceration, Laxity with valgus stress, Laxity with varus stress, Popliteal fossa tender, Unable to bear weight - Only painful to bear weight Calf: Normal, Nontender Ankle: Normal, Nontender Foot: Normal, Nontender - Neurological Neuro grossly intact: Yes Cognition: Normal Orientation: AAOx4 Carlos Coma Scale Eye Opening: Spontaneous [place] Coma Scale Verbal: Oriented [place] Coma Scale Motor: Obeys Commands [place] Coma Scale Total: 15 Speech: Normal Motor strength normal: LUE, RUE, LLE, RLE Sensory: Normal - Psychological Associated symptoms: Normal affect, Normal mood - Skin Skin Temperature: Warm Skin Moisture: Dry Skin Color: Normal Course - Vital Signs Vital signs: Temp Pulse Resp BP Pulse Ox 98.5 F 102 H 13 122/86 H 99 11/04/19 19:55 11/04/19 19:55 11/04/19 19:55 11/04/19 19:55 11/04/19 19:55 - Diagnostic Test Radiology reviewed: Image reviewed - Radiology is not able to read at this time. Patient has been informed to call tomorrow for the results of her x-ray. Procedures - Immobilization Left Knee Time completed: 20:13 Immobilizer type: Crutches, Knee immobilizer Performed by: HEMANTH GARZON Post-Proc Neuro Vasc Exam: Normal Alignment checked and good: Yes Discharge - Discharge Clinical Impression: Pain of left knee after injury Condition: Stable Disposition: HOME, SELF-CARE Additional Instructions: SUSPECTED INTERNAL KNEE INJURY: The examiner of your injured knee suspects an internal injury to the cartilage or internal ligaments. This must be further investigated by an orthopedic physician assistant. The knee should be protected, ice packed, and elevated while awaiting your follow-up exam by the orthopedist. If there is severe swelling, severe pain, or any new symptoms while awaiting your exam, you should call the orthopedist. (If he/she is unavailable, call us or return for re-examination.) KNEE IMMOBILIZING SPLINT: The knee immobilizing splint will protect the injury while healing begins. This type of splint does not allow the knee to bend at all. No running or sports will be possible. If the splint allows painfree walking, it's giving adequate protection. If there is still significant pain, crutches may be needed as well. Don't do anything that hurts. Adjusted the splint, if necessary. The stiffeners on the sides are attached with Velcro, so they can be easily moved to adjust for thigh and calf size. If you need help with these adjustments, come back. You will lose muscle strength in the thigh while using this splint. The doctor will advise you if it's safe to do isometric knee exercises while you use it. USE OF CRUTCHES: The doctor has recommended that you not bear weight at this time. You will need to use crutches. Adjust the crutches so the tops come to about two inches under the armpit while you are standing upright. Use your hands -- not your armpits -- to support your weight. To get into a chair, support yourself with one crutch on the injured side. Hold the chair with the other hand, then lower yourself while putting all your weight on the good leg. Going up stairs is `good leg up, step up, then bring up crutches and bad leg.' Down stairs is `bad leg and crutches down, then bring good leg down.' If you develop numbness or swelling in an arm or hand, you are using the crutches incorrectly. Return if you are having any problems with the crutches. ICE & ELEVATION: Apply ice packs frequently against the painful area. Many different schedules are recommended, such as "20 minutes on, 20 minutes off" or "one hour ice, two hours rest." If you need to work, you may need to go longer between ice treatments. You should plan to have the area ice packed AT LEAST one-fourth of the time. The ice should be applied over the wrap, tape, or splint, or over a layer of cloth -- not directly against the skin. Some ice bags have a built-in cloth and can be put directly on the skin. Your injured part should be elevated as much as possible over the next 48 hours. Try to keep the injury above the level of the heart. Avoid use of the injured area. Elevation and rest will decrease the swelling. USE OF NOMU-NBG-WESNDMI IBUPROFEN: Ibuprofen (Advil, Nuprin, Medipren, Motrin IB) is a medication for fever and pain control. In addition, it has anti- inflammatory effects which may be beneficial, especially in the treatment of injuries. It's best to take ibuprofen with food. Persons with ulcer disease or allergy to aspirin should notify their physician of this before taking ibuprofen. Ibuprofen can be given every four to six hours, for a total of four doses daily. Age Pain or fever dose Antiinflammatory dose 6-8 yr 200 mg (1 tab) 200 mg (1 tab) 9-11 yr 200 mg (1 tab) 200-400 mg (1-2 tab) 11-14 yr 200-400 mg (1-2 tab) 400 mg (2 tab) 15-adult 400 mg (2 tab) 600 mg (3 tab) Please call tomorrow after 9 AM AM and ask for the results of your x-ray. I am busy with another patient you might have to call a couple times to get me my name is Rasheed. FOLLOW-UP CARE: If you have been referred to a physician for follow-up care, call the physicians office for an appointment as you were instructed or within the next two days. If you experience worsening or a significant change in your symptoms, notify the physician immediately or return to the Emergency Department at any time for re-evaluation. Forms: Elevated Blood Pressure, Smoking Cessation Education Referrals: AMAURY COATES MD [EMERITUS] - Follow up as needed [facility] [Provider Group] - Follow up as needed
[2019-11-04 20:11] VITALS: BP 122/86
--- NOTE | 2019-11-04 20:43 | RADIOLOGY REPORT (SQ) ---
EXAM DESCRIPTION: XR KNEE 4 OR MORE VIEWS COMPLETED DATE/TME: 11/04/2019 19:58 CLINICAL HISTORY: Pain and injury to the left knee COMPARISON: None FINDINGS: Four x-ray views of the left knee were submitted. There is no acute fracture or dislocation. Bone mineralization is within normal limits. There is no radiopaque foreign body material. IMPRESSION: No acute fracture or dislocation.
--- NOTE | 2019-11-05 09:59 | ER Document Report ---
Doctor's Note Notes: 11/05/19 09:58 Patient did call for her x-ray reports. There was nothing acute on the x-rays. I did discuss with patient need to follow-up with primary care and/or orthopedics as we had discussed yesterday. Patient verbalized understanding and agreement with this. Patient will follow-up with her primary care.
== END 2019-11-04 20:15 | disposition home or self-care (01) ==
LOC: ER 19:38
DX: S89.92XA Unspecified injury of left lower leg, initial encounter (principal); W54.1XXA Struck by dog, initial encounter; Y92.009 Unspecified place in unspecified non-institutional (private) residence as the place of occurrence of the external cause; Z88.0 Allergy status to penicillin; Z91.040 Latex allergy status
CPT/HCPCS: 99283